=== PATIENT | female | born 1985 | race African-American/Black ===

== ENCOUNTER 2025-02-02 00:02 | Emergency (ER) | payer BC ==
[~2025-02-02] VITALS: Ht 165.1 cm; Wt 141.2 kg
[2025-02-02 00:12] VITALS: O2SAT 99
[2025-02-02 00:57] LABS: BASOPHILS % 0.6 % (0.0-2.0); EOSINOPHILS % 3.0 % (0.0-5.0); HEMATOCRIT. 30.5 % (36.0-48.0); HEMOGLOBIN. 10.4 g/dL (12.0-16.0); LYMPHOCYTES % 33.9 % (20.0-50.0); MEAN PLATELET VOLUME 6.9 fl (7.4-10.4); MONOCYTES % 7.1 % (2.0-8.0); NEUTROPHILS % 55.4 % (40.0-76.0); PLATELET 311 x1000/uL (130-400); RED BLOOD CELL COUNT 3.40 mill/uL (4.2-5.4); RED CELL DISTRIBUTION WIDTH 15.1 % (11.6-14.6)
[2025-02-02 01:04] LABS: CREATININE 0.6 mg/dL (0.6-1.0)
[2025-02-02 01:05] LABS: B-HCG QUANTITATIVE 91 mIU/mL (<6); UREA NITROGEN BLOOD 8 mg/dL (9-23)
[2025-02-02 01:06] LABS: ASPARTATE AMINOTRANSFERASE 32 IU/L (<34)
[2025-02-02 01:07] LABS: BILIRUBIN DIRECT < 0.1 mg/dL (<=3.0); BILIRUBIN TOTAL 0.4 mg/dL (0.1-1.0); PROTEIN TOTAL 6.3 g/dL (6.0-8.3)
[2025-02-02 01:29] LABS: INR 1.0
[2025-02-02 02:07] LABS: HCG SCREEN POSITIVE
[2025-02-02 02:16] LABS: CLARITY URINE CLOUDY (CLEAR); COLOR URINE DARK YELLOW (YELLOW); GLUCOSE URINE NEGATIVE (NEGATIVE); KETONES URINE TRACE (NEGATIVE); LEUKOCYTE ESTERASE URINE NEGATIVE (NEGATIVE); NITRITE URINE NEGATIVE (NEGATIVE); OCCULT BLOOD URINE 2+ (NEGATIVE); PH URINE 5.5 (4.5-8.0); PROTEIN URINE 1+ (NEGATIVE); SPECIFIC GRAVITY URINE 1.031 (1.005-1.030); UROBILINOGEN URINE 1.0 E.U./dL (0.2-1.0)
[2025-02-02] MEDS ORDERED: POTA-204 MT (02:37)
[2025-02-02 02:38] VITALS: BP 129/92; PULSE 64; RESP 18; TEMP 36.7; O2SAT 98
[2025-02-02] MEDS: POTASSIUM CHLORIDE 20MEQ/PACKET PO SCH (02:42)
[2025-02-02 04:00] LABS: SQUAMOUS EPITHELIAL CELL URINE 1+ /lpf (RARE/1+)
[2025-02-02 04:01] LABS: RBC URINE 0-2 /hpf (0-2); WBC URINE 0-2 /hpf (0-2)
[2025-02-02 04:05] LABS: BACTERIA URINE TRACE
== END 2025-02-02 02:49 | disposition home or self-care (01) ==
LOC: ER 00:02
DX: R60.0 Localized edema (principal); I10 Essential (primary) hypertension; E87.6 Hypokalemia; F19.90 Other psychoactive substance use, unspecified, uncomplicated; R10.20 Pelvic and perineal pain unspecified side; Z98.890 Other specified postprocedural states
CPT/HCPCS: 80076; 80048; 81003; 81025; 84703; 84702; 83735; 85025; 85610; 85730; 86850; 86900; 86901; 36415; 93970; 99284; Z7610